=== PATIENT | female | born 1995 | race Caucasian/White ===

== ENCOUNTER 2024-02-02 15:33 | Emergency (ER) | payer SELFPAY ==
[2024-02-02 15:43] VITALS: BP 124/96
--- NOTE | 2024-02-02 17:26 | ED.SKININJ ---
HPI-Injury
General
Chief Complaint: Bite
Source: patient
Exam Limitations: none
Time Seen by Provider: 02/02/24 16:35
Nursing documentation reviewed up to this point in time: agreed with
Travel History
Have you had any contact with someone who has COVID-19?: No
Do you have any symptoms of coronavirus? Fever > 100 degrees, chills, cough, shortness of breath, sore throat, loss of taste or smell, muscle aches, or headache?: No
History of Present Illness-Injury
Is this injury a work related problem?: Yes
Is pt an associate of [facility]?: No
Initial Injury comments:
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 Was bit to her right forearm she immediately cleaned the area and bandaged this. The dog is up-to-date with
vaccinations denies any abnormal behavior from the dog. Denies any numbness weakness or additional concerns. She is unsure when her last tetanus shot was.
Past History
Past History
ED Past Medical History: None
ED Past Surgical History: None
Social History
Tobacco: Smoker
Alcohol: None
Drug: None
Personal: Single
Living: with family
Employment: Employed
Family History
Family History: Negative Diabetes
Review of Systems
Review of Systems
Allergies reviewed?: Yes
All Other Systems: ROS reviewed and negative except as documented in HPI and ROS
Phy Exam
Physical Exam
Physical Exam:
GENERAL: Alert , in no apparent distress
EYE: pupils equal and reactive
NECK: Supple, no significant adenopathy.
ENT: o/p clr, mmm.
CARDIAC: Regular rate and rhythm .
LUNGS: Clear breath sounds bilaterally, no acute respiratory distress, no wheezes/rales/rhonchi
ABDOMEN: Soft, without focal tenderness, no r/g, no cvat
NEUROLOGICAL: Alert and oriented, no focal neuro deficits
SKIN: Small break in the skin to the right mid forearm on the anterior aspect roughly 1 cm in length no foreign body seen no bony tenderness warm and dry, skin intact.
MUSCULOSKELETAL: No edema, well perfused.
PSYCH: Normal and appropriate interaction.
Course
Orders/Labs/Results
Orders:
Orders
02/02/24 17:25
Amoxicillin 875 mg/Clav 125 mg [Augmentin 875 mg/125 mg] 1 tablet PO NOW STA
Tetanus/Diphth/Acelpertussis [Adacel] 0.5 ml IM .ONCE ONE
Vital Signs
Initial and Last Documented VS:
Initial Vital Signs
Temp Pulse Resp BP Pulse Ox
97.9 F 90 18 124/96 99
02/02/24 15:43 02/02/24 15:43 02/02/24 15:43 02/02/24 15:43 02/02/24 15:43
Last Documented Vital Signs
Temp Pulse Resp BP Pulse Ox
97.9 F 90 18 124/96 99
02/02/24 15:43 02/02/24 15:43 02/02/24 15:43 02/02/24 15:43 02/02/24 15:43
MDM/Problems Addressed
MDM/Problems Addressed:
28-year-old female presenting to the emergency department today with concerns of dog bite to her right forearm by a dog that she was groomed that is up-to-date with vaccinations. This was a small dog there is a small cut to the right forearm wound.
This is clean in appearance. She was started on Augmentin given a tetanus shot. The dog's vaccines are up-to-date posing very low risk for rabies at this time. Vies for close outpatient follow-up return precautions given.
*Critical Care Note
Total Time (30-74mins, 75-104mins- exclusive of procedures): Not Applicable
ED Attending Note
-
Portions of this chart may have been created with voice recognition software.� Occasional wrong word or��sound alike� substitutions may have occurred due to the inherent limitations of voice recognition software.
Discharge Plan
Departure
Patient Disposition: Home (Routine Discharge)
Date of Disposition: 02/02/24
Time of Disposition: 17:30
Patient with high blood pressure during this ER visit?: No
Condition: Good
Covid-19: Not Applicable
Discharge Problem:
Dog bite
Instructions: Animal Bites (DC)
Prescriptions:
New
amoxicillin-pot clavulanate 875-125 mg tablet
1 tab PO BID 3 Days Qty: 6 0RF
No Action
albuterol sulfate [Proventil HFA] 90 MCG/PUFF HFA aerosol inhaler
1 puff inhalation Q4HPRN PRN (Reason: shortness of breath) Qty: 1 0RF
Referrals:
Allie Rm PA-C [Family Provider] -
Activity Restrictions/Additional Instructions:
You came to the emergency department today with concerns after dog bite. Please keep the area clean covered and take Augmentin twice daily for the next 3 days. You are also given updated tetanus shot. Please follow close with your primary care
doctor. Return to the emergency department any worsening, new or concerning symptoms.
[2024-02-02] MEDS: ADACEL 0.5 ML IM (17:33)
[2024-02-02] MEDS: AUGMENTIN 875 MG/125 MG 1 TABLET PO (17:33)
== END 2024-02-02 17:50 | disposition home or self-care (01) ==
LOC: EMR 15:33
PROVIDERS: EMERGENCY PHYSICIAN Emergency Medicine; FAMILY PHYSICIAN Physician Assistant Medical
DX: S51.851A Open bite of right forearm, initial encounter (principal); W54.0XXA Bitten by dog, initial encounter; Y99.0 Civilian activity done for income or pay; F17.200 Nicotine dependence, unspecified, uncomplicated
CPT/HCPCS: 99283; 90471; 90715

== ENCOUNTER 2024-02-07 13:25 | Emergency (ER) | payer OTHER, SELFPAY ==
[2024-02-07 13:28] VITALS: BP 119/85
[2024-02-07 13:42] VITALS: BMI 21.5
[2024-02-07] MEDS: SOLU-MEDROL PF 125 MG IV (13:52)
[2024-02-07] MEDS: ADRENALIN 0.299999999999999989 MG IM (13:54)
[2024-02-07] MEDS: BENADRYL 50 MG IV (13:54)
[2024-02-07] MEDS: PEPCID 20 MG IV (13:55)
[2024-02-07 14:00] VITALS: BP 118/70
[2024-02-07 14:07] LABS: % Basophils 0.3 % (0-2); % Eosinophils 1.1 % (0-6); % Immature Granulocytes 0.3 % (0-0.5); % Lymphocytes 36.8 % (20.5-51.1); % Monocytes 7.9 % (1.7-9.3); % Neutrophils 53.6 % (42.2-75.2); Absolute Eosinophils 0.1 10^3/uL (0-0.7); Absolute Lymphocytes 2.9 10^3/uL (1.2-3.4); Absolute Monocytes 0.6 10^3/uL (0.1-0.6); Absolute Neutrophils 4.2 10^3/uL (1.4-6.5); Hematocrit 40.7 % (37.0-47.0); Hemoglobin 14.2 g/dL (12.0-16.0); Mean Corp Hgb Conc. 34.9 g/dL (33.0-37.0); Mean Corpuscular Hgb 30.9 pg (27.0-31.0); Mean Corpuscular Volume 88.7 fL (81.0-99.0); Mean Platelet Volume 9.6 fL (7.4-10.4); Nucleated Red Blood Cells % 0 %; Platelet Count 344 10^3/uL (130-400); Red Blood Cell Count 4.59 10^6/uL (4.20-5.40); Red Cell Dist. Width 12.7 % (11.5-14.5); White Blood Cell Count 7.9 10^3/uL (4.8-10.8)
[2024-02-07 14:21] LABS: ALT (SGPT) 17 U/L (0-35); AST (SGOT) 26 U/L (14-36); Albumin 5.2 g/dl (3.5-5.0); Alkaline Phosphatase 44 U/L (38-126); Blood Urea Nitrogen 18 mg/dl (7-17); Calcium 10.5 mg/dl (8.4-10.2); Carbon Dioxide 22 mmol/L (22-30); Chloride 102 mmol/L (98-107); Estimated Creatinine Clearance > 125 ml/min; Glucose 123 mg/dl (70-99); Sodium 139 mmol/L (135-145); Total Bilirubin 0.5 mg/dl (0.2-1.3); Total Protein 7.8 g/dl (6.3-8.2); eGFR > 60.00
[2024-02-07 14:25] LABS: Potassium 4.2 mmol/L (3.5-5.1)
[2024-02-07 15:00] VITALS: BP 105/58
--- NOTE | 2024-02-07 15:13 | ED.GENMED ---
History of Present Illness
General
Chief Complaint: Allergic Reaction
Source: patient
Exam Limitations: none
Time Seen by Provider: 02/07/24 13:49
Nursing documentation reviewed up to this point in time: agreed with
Travel History
Have you had any contact with someone who has COVID-19?: No
Do you have any symptoms of coronavirus? Fever > 100 degrees, chills, cough, shortness of breath, sore throat, loss of taste or smell, muscle aches, or headache?: No
History of Present Illness
History of Present Illness:
28-year-old female with no significant chronic medical issues presents to the emergency department for evaluation of allergic reaction. Patient says that she had abrupt onset about 30 minutes prior to arrival of severe itching and hives all over
her body associate with wheezing and coughing. She says that she had one of her grandmothers albuterol treatments which helped with the wheezing and coughing but she is still having severe itching and redness, hives and feels some itchiness in her
throat. She came immediately to the emergency to be assessed. She denies any nausea, vomiting, abdominal cramping. Denies any swelling of the tongue or lips. She denies having had similar symptoms in the past. She says she has no known
allergies. She was seen for a dog bite a few days ago and started on Augmentin but she says she only took 2 doses before she discontinued it has not had it in a few days. She denies any new food ingestions today says she was feeling this morning
and that was about it. 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
Past History
Past History
ED Past Medical History: None
ED Past Surgical History: None
Social History
Tobacco: Smoker
Alcohol: None
Drug: None
Personal: Single
Living: with family
Employment: Employed
Family History
Family History: Negative Diabetes
Review of Systems
Review of Systems
All Other Systems: ROS reviewed and negative except as documented in HPI and ROS
Constitutional: Denies fever or chills
EENT: Reports other (Itchy throat)
Respiratory: Reports cough and other (Wheezing); Denies trouble breathing
Cardiac: Denies chest pain or palpitations
ABD/GI: Denies abdominal pain, nausea or vomiting
: Denies flank pain
Musculoskeletal: Denies neck pain or back pain
Skin: Reports itching and rash
Neurological: Denies headache, weakness or numbness
Phy Exam
Physical Exam
Physical Exam:
General: Awake, alert, oriented x3; appears uncomfortable itching all over
Head: Normocephalic, atraumatic
Eyes: Conjunctiva normal, EOMI
Throat: Airway intact, handling secretions
Neck: Trachea midline, supple without meningismus
Lungs: Clear to auscultation bilaterally, no wheezing, rales, rhonchi appreciated
Heart: Tachycardia with regular rhythm, no murmurs, gallops, or rubs
Abd: Soft, non distended, nontender
Neuro: Cranial nerves grossly intact, speech fluid
Skin: Patient has hives on entire back, upper chest, abdomen, both upper arms upper thighs
Extremities: No edema in extremities, warm and well-perfused
Scores
Heart Failure Risk
Heart Failure Risk Score: Not Applicable
Heart Score for Chest Pain Patients
STEMI patient?: Not applicable
Withdrawal Assessment of Alcohol
Withdrawal Assessment Completed?: Not applicable
Course
Orders/Labs/Results
Orders:
Orders
02/07/24 13:45
EPINEPHrine PF [Adrenalin] 1 mg .ROUTE .STK-MED ONE
Famotidine [Pepcid] 20 mg .ROUTE .STK-MED ONE
02/07/24 13:46
Dexamethasone Sod Phosphate [Decadron] 20 mg .ROUTE .STK-MED ONE
02/07/24 13:48
Hydrocortisone Sod Succinate [Solu-Cortef] 200 mg .ROUTE .STK-MED ONE
02/07/24 13:49
MethylPREDNISolone PF [Solu-Medrol Pf] 125 mg IV NOW STA
02/07/24 13:50
Diphenhydramine [Benadryl] 50 mg IV NOW STA
EPINEPHrine PF [Adrenalin] 0.3 mg IM NOW STA
02/07/24 13:55
Famotidine [Pepcid] 20 mg IV NOW STA
02/07/24 13:57
CMP [Comprehensive Metabolic Panel] Urgent
Complete Blood Count/With Diff Urgent
Abnormal Lab Results
02/07/24
13:57
BUN 18 H mg/dl
(7-17)
Glucose 123 H mg/dl
(70-99)
Calcium 10.5 H mg/dl
(8.4-10.2)
Albumin 5.2 H g/dl
(3.5-5.0)
02/07/24 13:57
02/07/24 13:57
Vital Signs
Initial and Last Documented VS:
Initial Vital Signs
Temp Pulse Resp BP Pulse Ox
36.7 C 115 18 119/85 94
02/07/24 13:28 02/07/24 13:28 02/07/24 13:28 02/07/24 13:28 02/07/24 13:28
Last Documented Vital Signs
Temp Pulse Resp BP Pulse Ox
36.7 C 103 14 105/58 96
02/07/24 13:28 02/07/24 15:00 02/07/24 15:00 02/07/24 15:00 02/07/24 15:00
MDM/Problems Addressed
Differential Diagnosis Includes:
Anaphylaxis
MDM/Problems Addressed:
28-year-old female with no chronic medical issues presents with anaphylaxis. Unclear source she thinks it may be from some exposure while doing her boyfriend's laundry. She is tachycardic, hives all over her, says she had wheezing prior to arrival
took her mother's albuterol which improved this. IV placed she was given IM epinephrine, IV Solu-Medrol, IV Benadryl and Pepcid. She had rather rapid improvement of her symptoms with this treatment. Will continue to monitor for any rebound
symptoms. If she remains improved will need to provide prescription for EpiPen and allergy referral.
Observed in the emergency room and multiple reassessments no return of symptoms. Vital signs all normal patient asymptomatic. Stable for discharge with EpiPen, short course of prednisone, Benadryl as needed. Will refer to chemotherapist for follow-up
testing. She feels comfortable with this. Spoke about avoiding potential allergens such as dust on boyfriend's clothing. Spoke about return precautions and all questions answered.
*Pulse Oximetry
Patient hypoxic: no
*Critical Care Note
Total Time (30-74mins, 75-104mins- exclusive of procedures): 30
comment:
Critical care statement: A total of 30 minutes of critical care time was provided for this patient. This includes management of unstable vital signs, evaluation of the patient at bedside, frequent reassessment, discussion with
consultants/hospitalist, and review of pertinent medical records. This time was separate from time utilized to perform any aforementioned documented procedures
Data Reviewed
Source: patient and family (Grandmother)
ED Attending Note
-
Portions of this chart may have been created with voice recognition software.� Occasional wrong word or��sound alike� substitutions may have occurred due to the inherent limitations of voice recognition software.
Discharge Plan
Departure
Patient Disposition: Home (Routine Discharge)
Date of Disposition: 02/07/24
Time of Disposition: 16:37
Patient with high blood pressure during this ER visit?: No
Discharge Problem:
Anaphylaxis
Instructions: Anaphylaxis (DC)
Prescriptions:
New
epinephrine [EpiPen 2-Matthias] 0.3 mg/0.3 mL auto-injector
0.3 mg IM ONCE Qty: 2 0RF
prednisone 50 mg tablet
50 mg PO DAILY Qty: 4 0RF
diphenhydramine HCl [Benadryl] 25 mg capsule
25 mg PO TID PRN (Reason: itching) Qty: 14 0RF
No Action
albuterol sulfate [Proventil HFA] 90 MCG/PUFF HFA aerosol inhaler
1 puff inhalation Q4HPRN PRN (Reason: shortness of breath) Qty: 1 0RF
amoxicillin-pot clavulanate 875-125 mg tablet
1 tab PO BID 3 Days Qty: 6 0RF
Referrals:
Allie Rm PA-C [Family Provider] -
Manuel Phillips MD [Community] - Call in 1-3 days for appt (Mix Technician)
Activity Restrictions/Additional Instructions:
Thank you for visiting the Emergency Department at [facility].
1. Please schedule a follow up appointment as directed. Call first thing tomorrow morning to make an appointment.
2. If indicated, please take your medications as instructed and indicated on discharge paperwork.
3. If any of your symptoms do not improve, or persist, or become more severe within 6-12 hours, please return to the emergency department for further care.
4. Please return to the emergency department if you develop a headache, neck pain/stiffness, fever greater than 100.4F, chest pain, shortness of breath, persistent nausea, vomiting, slurred speech, difficulty walking, numbness/tingling, weakness,
signs of infection or any other symptoms that are worrisome to you.
Please call [phone] if you have any questions.
Interventions
Interventions:
*Risk Screen - Suicide Last Done: 02/07/24 13:28
*General Assessment Last Done: 02/07/24 13:42
*Neglect/Abuse Screening Last Done: 02/07/24 13:28
ED- Fall Risk Assessment Last Done: 02/07/24 15:08
*ED COVID-19 Vaccine History Last Done: 02/07/24 13:28
ED- Cardiac Assessment Last Done: 02/07/24 13:45
ED- Pulmonary Assessment Last Done: 02/07/24 13:45
ED-Skin Assessment Last Done: 02/07/24 13:45
[2024-02-07 16:00] VITALS: BP 103/62
== END 2024-02-07 16:46 | disposition home or self-care (01) ==
LOC: EMR 13:25
PROVIDERS: EMERGENCY PHYSICIAN Emergency Medicine; FAMILY PHYSICIAN Physician Assistant Medical
DX: T78.2XXA Anaphylactic shock, unspecified, initial encounter (principal); L50.0 Allergic urticaria; R00.0 Tachycardia, unspecified; R06.2 Wheezing; R05.9 Cough, unspecified; F17.200 Nicotine dependence, unspecified, uncomplicated
CPT/HCPCS: 99291; 96374; 96375 ×2; 96372; 80053; 85025

== ENCOUNTER 2024-02-29 15:30 | Emergency (ER) | payer OTHER, SELFPAY ==
[2024-02-29 15:48] VITALS: BP 118/52
[2024-02-29 16:04] VITALS: BMI 26.0
--- NOTE | 2024-02-29 16:28 | ED.GENMED ---
History of Present Illness
General
Chief Complaint: Allergic Reaction
Source: patient
Exam Limitations: none
Time Seen by Provider: 02/29/24 16:22
Nursing documentation reviewed up to this point in time: agreed with
Travel History
Have you had any contact with someone who has COVID-19?: No
Do you have any symptoms of coronavirus? Fever > 100 degrees, chills, cough, shortness of breath, sore throat, loss of taste or smell, muscle aches, or headache?: No
Past History
Past History
ED Past Medical History: None
ED Past Surgical History: None
Social History
Tobacco: Smoker
Alcohol: None
Drug: None
Personal: Single
Living: with family
Employment: Employed
Family History
Family History: Negative Diabetes
Course
Orders/Labs/Results
Orders:
Orders
02/29/24 16:27
Dexamethasone Pf [Decadron] 10 mg PO NOW STA
Vital Signs
Initial and Last Documented VS:
Initial Vital Signs
Temp Pulse Resp BP Pulse Ox
98.3 F 96 20 118/52 98
02/29/24 15:48 02/29/24 15:48 02/29/24 15:48 02/29/24 15:48 02/29/24 15:48
Last Documented Vital Signs
Temp Pulse Resp BP Pulse Ox
98.3 F 96 20 118/52 98
02/29/24 15:48 02/29/24 15:48 02/29/24 15:48 02/29/24 15:48 02/29/24 15:48
ED Attending Note
-
Portions of this chart may have been created with voice recognition software.� Occasional wrong word or��sound alike� substitutions may have occurred due to the inherent limitations of voice recognition software.
Discharge Plan
Departure
Prescriptions:
No Action
albuterol sulfate [Proventil HFA] 90 MCG/PUFF HFA aerosol inhaler
1 puff inhalation Q4HPRN PRN (Reason: shortness of breath) Qty: 1 0RF
amoxicillin-pot clavulanate 875-125 mg tablet
1 tab PO BID 3 Days Qty: 6 0RF
epinephrine [EpiPen 2-Matthias] 0.3 mg/0.3 mL auto-injector
0.3 mg IM ONCE Qty: 2 0RF
prednisone 50 mg tablet
50 mg PO DAILY Qty: 4 0RF
diphenhydramine HCl [Benadryl] 25 mg capsule
25 mg PO TID PRN (Reason: itching) Qty: 14 0RF
Referrals:
Allie Rm PA-C [Family Provider] -
Interventions
Interventions:
*Risk Screen - Suicide Last Done: 02/29/24 16:05
*General Assessment Last Done: 02/29/24 16:05
*Neglect/Abuse Screening Last Done: 02/29/24 16:05
*ED COVID-19 Vaccine History Last Done: 02/29/24 16:05
ED- Cardiac Assessment Last Done: 02/29/24 16:06
ED- Pulmonary Assessment Last Done: 02/29/24 16:06
ED-Skin Assessment Last Done: 02/29/24 16:06
Discharge Date and Time
Print Language: GERMAN
--- NOTE | 2024-02-29 16:30 | ED.GENMED ---
History of Present Illness
General
Chief Complaint: Allergic Reaction
Source: patient
Exam Limitations: none
Time Seen by Provider: 02/29/24 16:22
Nursing documentation reviewed up to this point in time: agreed with
Travel History
Have you had any contact with someone who has COVID-19?: No
Do you have any symptoms of coronavirus? Fever > 100 degrees, chills, cough, shortness of breath, sore throat, loss of taste or smell, muscle aches, or headache?: No
History of Present Illness
History of Present Illness:
Patient states she developed an allergic reaction after eating a banana. States she developed generalized hives, nasal congestion. No history of food allergies. States she drank a smoothie 2 weeks ago and had a similar event. Bananas were in
smoothie. Brought to ED by family for eval. States she took 50mg benadryl immediately and now feels much improved. Still with faint hives toabdomen. No other complaints.
Past History
Past History
ED Past Medical History: None
ED Past Surgical History: None
Social History
Tobacco: Smoker
Alcohol: None
Drug: None
Personal: Single
Living: with family
Employment: Employed
Family History
Family History: Negative Diabetes
Review of Systems
Review of Systems
Allergies reviewed?: Yes
All Other Systems: ROS reviewed and negative except as documented in HPI and ROS
Constitutional: Reports no symptoms
EENT: Reports other (nasal congestion)
Respiratory: Reports no symptoms
Cardiac: Reports no symptoms
ABD/GI: Reports no symptoms
: Reports no symptoms
Musculoskeletal: Reports no symptoms
Skin: Reports other (generalized hives)
Neurological: Reports no symptoms
Psychiatric: Reports no symptoms
Phy Exam
General Physical Exam
General Presentation: well appearing and no apparent distress
General age: appears stated age
General Skin: warm and dry
General Habitus: normal
General Mental: alert
ENT Exam
ENT Exam: pharynx normal, swallowing well and other (Uvula midline, no swelling)
Cardiovascular Exam
Cardiovascular Exam: regular rate/rhythm
Pulmonary Exam
Pulmonary Exam: lungs clear, no respiratory distress and no cough
Neurological Exam
Neurological Exam: alert, oriented x3, no motor deficits and no sensory deficits
Musculoskeletal Exam
Musculoskeletal Exam: full ROM and neuro vasc intact
Skin Exam
Skin Exam: normal color, warm/dry and other (faint small hives to abdomen)
Psychiatric Exam
Psychiatric Exam: normal mood/affect
Course
Orders/Labs/Results
Orders:
Orders
02/29/24 16:27
Dexamethasone Pf [Decadron] 10 mg PO NOW STA
Vital Signs
Initial and Last Documented VS:
Initial Vital Signs
Temp Pulse Resp BP Pulse Ox
98.3 F 96 20 118/52 98
02/29/24 15:48 02/29/24 15:48 02/29/24 15:48 02/29/24 15:48 02/29/24 15:48
Last Documented Vital Signs
Temp Pulse Resp BP Pulse Ox
98.3 F 96 20 118/52 98
02/29/24 15:48 02/29/24 15:48 02/29/24 15:48 02/29/24 15:48 02/29/24 15:48
*Critical Care Note
Total Time (30-74mins, 75-104mins- exclusive of procedures): Not Applicable
Update Note
Update Note:
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 Given decadron in dept and will continue benadryl every 4-6 hours x 24 hours. No respiratory involvement. Swallowing without difficulty. She is discharged home and will followu p with PCP in AM. Given
instructions on s/s to return to ED and she is agreeable to plan.
ED Attending Note
-
Portions of this chart may have been created with voice recognition software.� Occasional wrong word or��sound alike� substitutions may have occurred due to the inherent limitations of voice recognition software.
Discharge Plan
Departure
Patient Disposition: Home (Routine Discharge)
Date of Disposition: 02/29/24
Time of Disposition: 16:28
Patient with high blood pressure during this ER visit?: No
Condition: Good
Covid-19: Not Applicable
Discharge Problem:
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
Instructions: Food allergy, Diphenhydramine (Systemic)
Prescriptions:
No Action
albuterol sulfate [Proventil HFA] 90 MCG/PUFF HFA aerosol inhaler
1 puff inhalation Q4HPRN PRN (Reason: shortness of breath) Qty: 1 0RF
amoxicillin-pot clavulanate 875-125 mg tablet
1 tab PO BID 3 Days Qty: 6 0RF
epinephrine [EpiPen 2-Matthias] 0.3 mg/0.3 mL auto-injector
0.3 mg IM ONCE Qty: 2 0RF
prednisone 50 mg tablet
50 mg PO DAILY Qty: 4 0RF
diphenhydramine HCl [Benadryl] 25 mg capsule
25 mg PO TID PRN (Reason: itching) Qty: 14 0RF
Referrals:
Allie Rm PA-C [Family Provider] - Tomorrow
Activity Restrictions/Additional Instructions:
Continue benadryl 25-50mg every 4-6 hours for the next 24 hours. Return to the emergency department immediately for any difficulty breathing or swallowing.
Interventions
Interventions:
*Risk Screen - Suicide Last Done: 02/29/24 16:05
*General Assessment Last Done: 02/29/24 16:05
*Neglect/Abuse Screening Last Done: 02/29/24 16:05
*ED COVID-19 Vaccine History Last Done: 02/29/24 16:05
ED- Cardiac Assessment Last Done: 02/29/24 16:06
ED- Pulmonary Assessment Last Done: 02/29/24 16:06
ED-Skin Assessment Last Done: 02/29/24 16:06
Discharge Date and Time
Print Language: KOREAN
[2024-02-29 16:33] VITALS: BP 112/55
[2024-02-29] MEDS: DECADRON 10 MG PO (16:39)
== END 2024-02-29 16:44 | disposition home or self-care (01) ==
LOC: EMR 15:30
PROVIDERS: EMERGENCY PHYSICIAN Emergency Medicine; FAMILY PHYSICIAN Physician Assistant Medical
DX: L50.0 Allergic urticaria (principal); R09.81 Nasal congestion; F17.200 Nicotine dependence, unspecified, uncomplicated; Z91.018 Allergy to other foods
CPT/HCPCS: 99283

== ENCOUNTER 2024-07-31 21:21 | Emergency (ER) | payer OTHER, SELFPAY ==
[2024-07-31 21:22] VITALS: BP 116/61
--- NOTE | 2024-07-31 22:03 | EDRN ---
Pt was bit by a dog on her R hand two days ago. Dog utd with rabies vaccine. Pt had a tetanus vaccine in January of this year. Pt denies fever/chills. Pt has mild discomfort, no drainage. Pt says she wants to make sure it is not infected.
--- NOTE | 2024-07-31 22:57 | ED.SKININJ ---
HPI-Injury
General
Chief Complaint: Bite
Source: patient
Exam Limitations: none
Time Seen by Provider: 07/31/24 22:19
Nursing documentation reviewed up to this point in time: agreed with
History of Present Illness-Injury
Initial Injury comments:
PT IS A 28 y/o F with no sig pmh
here with dogbite to right hand 2 days ago
she has some bruising and rendess but it actually looks better today than yesterday
she was worried maybe she should be seen
she was playing with her friend's dog who accidetnally bit her
dog is vaccinated and home pet
tetanus already UTD
Past History
Past History
ED Past Medical History: None
ED Past Surgical History: None
Social History
Tobacco: Smoker
Alcohol: None
Drug: None
Personal: Single
Living: with family
Employment: Employed
Family History
Family History: Negative Diabetes
Review of Systems
Review of Systems
Allergies reviewed?: Yes
All Other Systems: Not applicable
Phy Exam
Physical Exam
Physical Exam:
GENERAL: Alert , in no apparent distress, comfortable at rest
HEAD: NCAT
CV: 2+ radial pulse, cap refill intact thumb
NEUROLOGICAL: Alert and oriented, no focal neuro deficits, , 5/5 strength, sensation intact, ambulation slight limp right leg
SKIN: Warm and dry, 2 puncture wound to right hand palmar aspect thenar eminence
MUSCULOSKELETAL: right palmar dog bite puncture shukla, very minimal soft tissue swelling, no signifiant erythema, no drainage
bruising volar wrist nontneder
full rom of thumb and hand and wrist
PSYCH: Normal and appropriate interaction.
Course
Orders/Labs/Results
Orders:
Orders
07/31/24 22:45
Amoxicillin 875 mg/Clav 125 mg [Augmentin 875 mg/125 mg] 1 tablet PO NOW STA
Vital Signs
Initial and Last Documented VS:
Initial Vital Signs
Temp Pulse Resp BP Pulse Ox
98.7 F 111 20 116/61 99
07/31/24 21:22 07/31/24 21:22 07/31/24 21:22 07/31/24 21:22 07/31/24 21:22
Last Documented Vital Signs
Temp Pulse Resp BP Pulse Ox
98.7 F 98 20 69/59 98
07/31/24 21:22 07/31/24 23:02 07/31/24 21:22 07/31/24 23:02 07/31/24 23:02
MDM/Problems Addressed
Differential Diagnosis Includes:
bite, puncture wounds, celllulitis
MDM/Problems Addressed:
28 y/o F
no sig pmh
here with dog bite right hand 2 days ago
looks improved from yesterday but still mildly swollen and pink
wanted to be sure she didn't need any treatment
no concern for rabies
tetanus utd
no signs of significant cellulitis, able to move thumb
but will empirically treat with abx
augmentin
*Critical Care Note
Total Time (30-74mins, 75-104mins- exclusive of procedures): Not Applicable
ED Attending Note
-
Portions of this chart may have been created with voice recognition software.� Occasional wrong word or��sound alike� substitutions may have occurred due to the inherent limitations of voice recognition software.
Discharge Plan
Departure
Patient Disposition: Home (Routine Discharge)
Date of Disposition: 07/31/24
Time of Disposition: 22:56
Patient with high blood pressure during this ER visit?: No
Condition: Fair
Covid-19: Not Applicable
Discharge Problem:
Dog bite
Instructions: Animal Bites (DC)
Prescriptions:
New
amoxicillin-pot clavulanate 875-125 mg tablet
1 tab PO BID Qty: 14 0RF
Referrals:
Allie Rm PA-C [Family Provider] -
Activity Restrictions/Additional Instructions:
TAKE THE AUGMENTIN TWICE A DAY FOR 7 DAYS
KEEP THE WOUND CLEAN
WATCH FOR WORSENING SWELLING, REDNESS, DRAINAGE, ETC AND RETURN NEEDED
Interventions
Interventions:
*Risk Screen - Suicide Last Done: 07/31/24 21:57
*General Assessment Last Done: 07/31/24 21:57
*Neglect/Abuse Screening Last Done: 07/31/24 21:57
*ED COVID-19 Vaccine History Last Done: 07/31/24 21:57
ED-Skin Assessment Last Done: 07/31/24 21:57
Discharge Date and Time
Print Language: ARABIC
[2024-07-31 23:02] VITALS: BP 69/59
[2024-07-31] MEDS: AUGMENTIN 875 MG/125 MG 1 TABLET PO (23:17)
--- NOTE | 2024-07-31 23:23 | EDRN ---
Unable to administer first ordered augmentin because when pt bracelet scanned, screen popped up that Dr Roach is updating the chart however she left for the night. Per SABIHA Patel another order was placed and that one was able to be scanned
properly so first one marked as not given.
== END 2024-07-31 23:19 | disposition home or self-care (01) ==
LOC: EMR 21:21
PROVIDERS: EMERGENCY PHYSICIAN Emergency Medicine; FAMILY PHYSICIAN Physician Assistant Medical
DX: S61.451A Open bite of right hand, initial encounter (principal); S60.211A Contusion of right wrist, initial encounter; S60.221A Contusion of right hand, initial encounter; W54.0XXA Bitten by dog, initial encounter; F17.200 Nicotine dependence, unspecified, uncomplicated; Z91.018 Allergy to other foods
CPT/HCPCS: 99283

== ENCOUNTER 2025-04-13 11:48 | Emergency (ER) | payer OTHER, SELFPAY ==
[2025-04-13 11:52] VITALS: BP 114/58
--- NOTE | 2025-04-13 12:26 | ED.GENMED ---
History of Present Illness
<Parish Tracey PA-C - Last Filed: 04/13/25 12:29>
General
Chief Complaint: Abdominal Pain
Source: patient
Time Seen by Provider: 04/13/25 12:19
History of Present Illness
History of Present Illness:
29-year-old female with no significant past medical history presents to the emergency department from urgent care for evaluation after she developed a right lower quadrant abdominal pain yesterday described to be somewhat sharp, nonradiating,
constant, currently 7 out of 10 without any other associated symptoms including denying any nausea, vomiting, diarrhea, urinary frequency/urgency/dysuria/hematuria, vaginal bleeding or discharge, back or flank pain. Patient did not take anything
for her symptoms today. Recommended to come to the ER for further imaging. Patient states she is due for her menstrual within the next couple of days, does not believe to be but states she is sexually active and it is a possibility.
Social history was noted for weekend social drinking as well as daily marijuana use. Denies any history of IV drug use.
Past History
<Parish Tracey PA-C - Last Filed: 04/13/25 12:29>
Past History
ED Past Medical History: None
ED Past Surgical History: None
Social History
Tobacco: Smoker
Alcohol: Occasional
Drug: None
Personal: Single
Living: with family
Employment: Employed
Family History
Family History: Negative Diabetes
Review of Systems
<Parish Tracey PA-C - Last Filed: 04/13/25 12:29>
Review of Systems
All Other Systems: ROS reviewed and negative except as documented in HPI and ROS
Phy Exam
<Parish Tracey PA-C - Last Filed: 04/13/25 12:29>
Physical Exam
Physical Exam:
GENERAL: Alert , in no apparent distress but does appear mildly uncomfortable
EYE: clear conjunctiva b/l
HEAD: NCAT
ENT: o/p clr, mmm.
CARDIAC: Regular rate and rhythm .
LUNGS: Clear breath sounds bilaterally, no acute respiratory distress, no wheezes/rales/rhonchi
ABDOMEN: Soft, moderate tenderness within the right mid to lower abdomen, no r/g, no cvat
NEUROLOGICAL: Alert and oriented
SKIN: Warm and dry, skin intact.
MUSCULOSKELETAL: No edema, well perfused.
PSYCH: Normal and appropriate interaction.
Scores
<Parish Tracey PA-C - Last Filed: 04/13/25 12:29>
Heart Failure Risk
Heart Failure Risk Score: Not Applicable
Heart Score for Chest Pain Patients
STEMI patient?: Not applicable
Withdrawal Assessment of Alcohol
Withdrawal Assessment Completed?: Not applicable
Course
<Parish Tracey PA-C - Last Filed: 04/13/25 12:29>
Orders/Labs/Results
Orders:
Orders
04/13/25 12:25
CT Abd/pelvis W Iv Cont Urgent
Comment:
Reason For Exam: right sided abd pain
Ketorolac [Toradol] 30 mg IV NOW STA
Test Result ONCE
04/13/25 12:29
Complete Blood Count/With Diff Urgent
Comprehensive Metabolic Panel Urgent
HCG, Serum Qualitative Screen Urgent
Lipase Urgent
Manual Differential Urgent
04/13/25 15:32
Urinalysis Reflex To Culture Urgent
Date Specimen was Collected: 04/13/25
Time Specimen was Collected: 15:28
Abnormal Lab Results
04/13/25
12:29
RBC 3.71 L 10^6/uL
(4.20-5.40)
Hgb 11.7 L g/dL
(12.0-16.0)
Hct 34.3 L %
(37.0-47.0)
MCH 31.5 H pg
(27.0-31.0)
Monocytes (Manual) 20 H %
(2-9)
Chloride 110 H mmol/L
(98-107)
BUN 6 L mg/dl
(7-17)
Alkaline Phosphatase 31 L U/L
(38-126)
Total Protein 6.1 L g/dl
(6.3-8.2)
04/13/25 12:29
04/13/25 12:29
Vital Signs
Initial and Last Documented VS:
Initial Vital Signs
Temp Pulse Resp BP Pulse Ox
98.4 F 79 20 114/58 99
04/13/25 11:52 04/13/25 11:52 04/13/25 11:52 04/13/25 11:52 04/13/25 11:52
Last Documented Vital Signs
Temp Pulse Resp BP Pulse Ox
98.4 F 73 16 118/77 99
04/13/25 11:52 04/13/25 15:54 04/13/25 15:54 04/13/25 15:54 04/13/25 15:54
<Sonia Payan PA-C - Last Filed: 04/14/25 03:51>
Orders/Labs/Results
Orders:
Orders
04/13/25 12:25
CT Abd/pelvis W Iv Cont Urgent
Comment:
Reason For Exam: right sided abd pain
Ketorolac [Toradol] 30 mg IV NOW STA
Test Result ONCE
04/13/25 12:29
Complete Blood Count/With Diff Urgent
Comprehensive Metabolic Panel Urgent
HCG, Serum Qualitative Screen Urgent
Lipase Urgent
Manual Differential Urgent
04/13/25 15:32
Urinalysis Reflex To Culture Urgent
Date Specimen was Collected: 04/13/25
Time Specimen was Collected: 15:28
Abnormal Lab Results
04/13/25
12:29
RBC 3.71 L 10^6/uL
(4.20-5.40)
Hgb 11.7 L g/dL
(12.0-16.0)
Hct 34.3 L %
(37.0-47.0)
MCH 31.5 H pg
(27.0-31.0)
Monocytes (Manual) 20 H %
(2-9)
Chloride 110 H mmol/L
(98-107)
BUN 6 L mg/dl
(7-17)
Alkaline Phosphatase 31 L U/L
(38-126)
Total Protein 6.1 L g/dl
(6.3-8.2)
04/13/25 12:29
04/13/25 12:29
Vital Signs
Initial and Last Documented VS:
Initial Vital Signs
Temp Pulse Resp BP Pulse Ox
98.4 F 79 20 114/58 99
04/13/25 11:52 04/13/25 11:52 04/13/25 11:52 04/13/25 11:52 04/13/25 11:52
Last Documented Vital Signs
Temp Pulse Resp BP Pulse Ox
98.4 F 73 16 118/77 99
04/13/25 11:52 04/13/25 15:54 04/13/25 15:54 04/13/25 15:54 04/13/25 15:54
<Parish Tracey PA-C - Last Filed: 04/13/25 12:29>
MDM/Problems Addressed
Differential Diagnosis Includes:
, ovarian cyst, ovarian torsion, cystitis/pyelonephritis, appendicitis, colitis, renal/ureteral colic
MDM/Problems Addressed:
29-year-old female presenting to the ER for evaluation of right-sided abdominal discomfort, sent to the emergency department by urgent care for further evaluation and imaging. Patient did not take anything for her symptoms. She is currently
afebrile and otherwise hemodynamically stable. Will treat her pain with Toradol. CT imaging ordered as this would likely assess appendicitis, ovarian etiology as well as kidney stone/ureterolithiasis. Disposition pending.
<Parish Tracey PA-C - Last Filed: 04/13/25 12:29>
*Pulse Oximetry
Patient hypoxic: no
<Sonia Payan PA-C - Last Filed: 04/14/25 03:51>
*Critical Care Note
Total Time (30-74mins, 75-104mins- exclusive of procedures): Not Applicable
<Sonia Payan PA-C - Last Filed: 04/14/25 03:51>
Update Note
Update Note:
Update 3:47PM: Received patient in signout pending CT report. CT without acute findings. On reassessment patient feeling better after toradol. Unknown exact etiology of abdominal pain. Patient is well appearing with stable vital signs. Feel stable
for discharge home with outpatient follow-up. Return precautions discussed.
ED Attending Note
<Parish Tracey PA-C - Last Filed: 04/13/25 12:29>
-
Portions of this chart may have been created with voice recognition software.� Occasional wrong word or��sound alike� substitutions may have occurred due to the inherent limitations of voice recognition software.
Discharge Plan
Departure
Patient Disposition: Home (Routine Discharge)
Date of Disposition: 04/13/25
Time of Disposition: 16:14
Patient with high blood pressure during this ER visit?: No
Condition: Good
Discharge Problem:
Abdominal pain
Instructions: Abdominal Pain
Prescriptions:
No Action
amoxicillin-pot clavulanate 875-125 mg tablet
1 tab PO BID Qty: 14 0RF
Referrals:
Abelino Benjamin, [Family Provider] - Follow up in 5-7 days
Activity Restrictions/Additional Instructions:
RETURN TO THE EMERGENCY DEPARTMENT WITH ANY FEVER, PERSISTENT/WORSENING ABDOMINAL PAIN, INTRACTABLE NAUSEA/VOMITING, PERSISTENT LACK OF APPETITE SYMPTOMS, OR ANY OTHER CONCERNS
- As discussed your lab work, urine sample, and CT scan showed no acute abnormalities in the emergency department. We are unsure the exact cause of your abdominal pain today.
- It is important you stay well-hydrated. You can take Tylenol and/or Motrin as needed for pain.
- You should follow-up with your primary care and [facility] for further evaluation/management and to ensure that symptoms are improving
Monitor your symptoms closely and return to the emergency department with any acute worsening/new symptoms or any other concerns
Interventions
Interventions:
*Risk Screen - Suicide Last Done: 04/13/25 12:20
*General Assessment Last Done: 04/13/25 11:52
*Neglect/Abuse Screening Last Done: 04/13/25 12:20
*ED- Fall Risk Assessment Last Done: 04/13/25 12:19
*ED COVID-19 Vaccine History Last Done: 04/13/25 12:19
*Nursing Disposition Last Done: 04/13/25 16:23
OC-Yzcphg-Xgxjabzcsy Assessment Last Done: 04/13/25 12:20
Discharge Date and Time
Discharge Date/Time: 04/13/25 16:23
Print Language: JAPANESE
[2025-04-13] MEDS: TORADOL 30 MG IV (12:32)
[2025-04-13 12:51] LABS: Hematocrit 34.3 % (37.0-47.0); Hemoglobin 11.7 g/dL (12.0-16.0); Mean Corp Hgb Conc. 34.1 g/dL (33.0-37.0); Mean Corpuscular Hgb 31.5 pg (27.0-31.0); Mean Corpuscular Volume 92.5 fL (81.0-99.0); Mean Platelet Volume 9.7 fL (7.4-10.4); Platelet Count 169 10^3/uL (130-400); Red Blood Cell Count 3.71 10^6/uL (4.20-5.40); Red Cell Dist. Width 12.4 % (11.5-14.5); White Blood Cell Count 5.2 10^3/uL (4.8-10.8)
[2025-04-13 12:53] LABS: HCG, Serum Qualitative Screen Negative
[2025-04-13 12:56] LABS: ALT (SGPT) 17 U/L (0-35); AST (SGOT) 19 U/L (14-36); Albumin 4.2 g/dl (3.5-5.0); Alkaline Phosphatase 31 U/L (38-126); Blood Urea Nitrogen 6 mg/dl (7-17); Calcium 8.7 mg/dl (8.4-10.2); Carbon Dioxide 25 mmol/L (22-30); Chloride 110 mmol/L (98-107); Glucose 99 mg/dl (70-99); Potassium 4.1 mmol/L (3.5-5.1); Sodium 140 mmol/L (135-145); Total Bilirubin 0.3 mg/dl (0.2-1.3); Total Protein 6.1 g/dl (6.3-8.2); eGFR > 60.00
[2025-04-13 13:26] LABS: Absolute Neutrophils -Man Diff 2.4 10^3/uL (1.4-6.5); Band Neutrophils 2 % (0-3); Eosinophils 1 % (0-6); Lymphocytes 30 % (20-51); Metamyelocytes 1 % (-); Monocytes 20 % (2-9); Segmented Neutrophils 46 % (42-75)
[2025-04-13 13:29] LABS: Normal RBC Morphology Yes; Platelets Checked Yes; Total Cells Counted 100
[2025-04-13 14:00] LABS: Lipase 68 U/L (23-300)
[2025-04-13 14:07] VITALS: BP 121/74
[2025-04-13 15:48] LABS: Urine Albumin Negative (Neg - Trace); Urine Bilirubin Negative (Negative); Urine Character Clear (Clear); Urine Color Yellow; Urine Glucose Negative (Negative); Urine Ketone Negative (Negative); Urine Leukocyte Negative (Negative); Urine Nitrite Negative (Negative); Urine Occult Blood Negative (Negative); Urine Urobilinogen Negative (Neg - 1+)
[2025-04-13 15:54] VITALS: BP 118/77
== END 2025-04-13 16:23 | disposition home or self-care (01) ==
LOC: EMR 11:48
PROVIDERS: Physician Assistant Medical; EMERGENCY PHYSICIAN Emergency Medicine; FAMILY PHYSICIAN Family Medicine
DX: R10.31 Right lower quadrant pain (principal); F17.200 Nicotine dependence, unspecified, uncomplicated; Z91.018 Allergy to other foods
CPT/HCPCS: 99284; 96374; 74177; 80053; 81003; 83690; 84703; 85025; Q9967